=== PATIENT | female | born 1990 | race Caucasian/White ===

== ENCOUNTER 2016-12-17 08:26 | Day surgery (SDC) | payer BC ==
[2016-12-17] MEDS ORDERED: Bupivacaine PF 0.5% 30 ML VIAL ONE (08:43)
[2016-12-17] MEDS ORDERED: Fentanyl 100 MCG/2 ML VIAL ONE (08:49)
[2016-12-17] MEDS ORDERED: Midazolam HCl 2 mg/2 ml Vial ONE (08:49)
--- NOTE | 2016-12-17 09:10 | HP ---
HISTORY OF PRESENT ILLNESS: Leighann Vega is a 26-year-old female who presents with onset of abd ominal pain and epigastric yesterday localizing last to right lower quadrant. The patient presents to [facility] Room last night. She had elevated white count. CAT scan suggesting appendic itis, slightly dilated appendix without stranding, but had a classic exam. Pain is worse with movem ent. She has suffered anorexia and nausea, but no vomiting. Her hemoglobin is 13, white count 15. Urinalysis unremarkable. Basic metabolic profile was unremarkable at [facility]. ALLERGIES: None. TOBACCO: None. ALCOHOL: Daily. MEDICATIONS: None routinely. She has a contraceptive device in place. PAST SURGICAL HISTORY: Noncontributory. PAST MEDICAL HISTORY: Depression. MEDICATIONS: Duloxetine daily. REVIEW OF SYSTEMS: Ten point noncontributory. PHYSICAL EXAMINATION: VITAL SIGNS: 120/77, 98.1 degrees, 91, 16. HEENT: Unremarkable. LUNGS: Clear to auscultation. CARDIAC: Regular rate and rhythm without murmur or gallop. ABDOMEN: Soft, tenderness in right lower quadrant with guarding and rebound. Positive Rovsing. EXTREMITIES: Unremarkable. LYMPH: Neck, axillae or groins without lymphadenopathy. NEURO: Neurologically intact. No focal deficits. ASSESSMENT AND PLAN: Acute appendicitis. Recommend laparoscopic video appendectomy. Risk of infec tion, bleeding, visceral injury explained. Possibly open procedure discussed. She consents. Catrachita mckoy answered.
[2016-12-17] MEDS ORDERED: Scopolamine 1.5 mg/72 hour Patch ONE (09:15)
[2016-12-17] MEDS ORDERED: Ketorolac Tromethamine 30 MG/ML VIAL ONE (09:15)
[2016-12-17] MEDS ORDERED: Propofol 200 MG/20 ML VIAL ONE (09:45)
[2016-12-17] MEDS ORDERED: Glycopyrrolate 0.2 MG/ML 5 ML SYRINGE ONE (09:45)
[2016-12-17] MEDS ORDERED: Dexamethasone 20 MG/5 ML VIAL ONE (09:45)
[2016-12-17] MEDS ORDERED: diphenhydrAMINE HCl 50 MG/ML 1 ML VIAL ONE (09:45)
[2016-12-17] MEDS ORDERED: Lidocaine 1% PF 5 ML VIAL ONE (09:45)
[2016-12-17] MEDS ORDERED: Metoclopramide HCl 10 MG/2 ML VIAL ONE (09:45)
--- NOTE | 2016-12-17 12:40 | OP ---
DATE PROCEDURE: 12/17/2016 PREOPERATIVE DIAGNOSIS: Acute appendicitis. POSTOPERATIVE DIAGNOSIS: Acute appendicitis. PROCEDURE: Laparoscopic video appendectomy. SURGEON: Rosalio Molina M.D. ANESTHESIA: General. Local 0.5% Marcaine with epinephrine, 30 mL total volume used. PROCEDURE: The patient taken to the operating room where under general anesthesia, abdomen was clip ped of hair, prepared with chloraprep, draped in routine fashion. Hernandez catheter placed at the begi nning of the procedure and removed at the end. Local anesthetic 0.5% Marcaine with epinephrine infi ltrated into skin and subcutaneous tissue about each port site. Infraumbilical incision made and pn eumoperitoneum to 15 mmHg obtained with the Veress needle, replacing it with a 5 port and laparoscop e inserted. Suprapubic incision made and a 12 port placed. Right lateral subcostal incision made a nd a 5 port placed. Appendix was noted to be acutely inflamed. Mesoappendix taken down with the Li gaSure. The stump of the appendix divided with Endo-RUBÉN blue load stapler. Stapled cecal stump was hemostatic after application of clips. Good hemostasis ensured. Irrigant and pneumoperitoneum gamal cuated. All instruments removed and all skin incisions approximated with interrupted subdermal 4-0 Monocryl after suprapubic fascia approximated with 0 Vicryl GraNee needle. The patient tolerated th e procedure well.
== END 2016-12-17 11:53 | disposition home or self-care (01) ==
LOC: SDC 08:26
PROVIDERS: ATTEND Specialist
PROC: 0DTJ4ZZ Resection of Appendix, Percutaneous Endoscopic Approach (ICD-10-PCS; principal; 2016-12-17)
DX: K35.80 Unspecified acute appendicitis (principal); Z97.5 Presence of (intrauterine) contraceptive device
CPT/HCPCS: 88304; J0131; J1100; J1200; J1885; J2001; J2250; J2704; J2765; J3010; S0020